=== PATIENT | female | born 1975 | race Caucasian/White ===

== ENCOUNTER 2017-04-14 11:22 | Inpatient (IN) | payer OTHER ==
[~2017-04-14] VITALS: Ht 154.9 cm; Wt 168.0 kg
== END 2017-05-03 10:43 | disposition home or self-care (01) | DRG 778 ==
LOC: LDR 11:22 → OB/GYN 04-15 12:17
PROC: 4A1HXCZ Monitoring of Products of Conception, Cardiac Rate, External Approach (ICD-10-PCS; principal; 2017-04-14)
PROC: BU46ZZZ Ultrasonography of Uterus (ICD-10-PCS; 2017-04-16)
PROC: BY4FZZZ Ultrasonography of Third Trimester, Single Fetus (ICD-10-PCS; 2017-04-21)
PROC: BU46ZZZ Ultrasonography of Uterus (ICD-10-PCS; 2017-04-21)
PROC: BU46ZZZ Ultrasonography of Uterus (ICD-10-PCS; 2017-05-01)
PROC: BY4FZZZ Ultrasonography of Third Trimester, Single Fetus (ICD-10-PCS; 2017-05-01)
DX: O60.03 Preterm labor without delivery, third trimester (principal); Z3A.28 28 weeks gestation of pregnancy

== ENCOUNTER → 2017-05-31 | Outpatient (CLI) | payer OTHER | END | disposition home or self-care (01) | LOC: OBS/DEL 17:38 → NST 17:38 | DX: Z34.83 Encounter for supervision of other normal pregnancy, third trimester (principal) ==

== ENCOUNTER 2017-06-03 15:13 | Inpatient (IN) | payer OTHER ==
[~2017-06-03] VITALS: Ht 154.9 cm; Wt 2.3 kg
== END 2017-06-05 12:18 | DRG 775 ==
LOC: LDR 15:13 → SURG-SUITE 19:36
PROC: 0HQ9XZZ Repair Perineum Skin, External Approach (ICD-10-PCS; principal; 2017-06-03)
PROC: 10E0XZZ Delivery of Products of Conception, External Approach (ICD-10-PCS; 2017-06-03)
PROC: 4A1HXCZ Monitoring of Products of Conception, Cardiac Rate, External Approach (ICD-10-PCS; 2017-06-03)
PROC: 0W8NXZZ Division of Female Perineum, External Approach (ICD-10-PCS; 2017-06-03)
PROC: 4A033R1 Measurement of Arterial Saturation, Peripheral, Percutaneous Approach (ICD-10-PCS; 2017-06-03)
DX: O70.20 Third degree perineal laceration during delivery, unspecified (principal); O60.14X0 Preterm labor third trimester with preterm delivery third trimester, not applicable or unspecified; Z3A.35 35 weeks gestation of pregnancy; Z37.0 Single live birth